=== PATIENT | male | born 2005 | race Caucasian/White ===

== ENCOUNTER 2025-06-23 12:44 | Emergency (ER) | payer BC, SELFPAY ==
--- NOTE | ~2025-06-23 | XR_ITS ---
EXAMINATION: XR ankle LT min 3V, 06/23/2025 13:52 CDT HISTORY: Left ankle pain COMPARISON: No comparisons available. Findings: No acute fracture or malalignment. No significant degenerative changes. Soft tissues unremarkable. Impression: No acute fracture or malalignment. Reviewed, dictated and finalized at location P. Impression: No acute fracture or malalignment.
--- NOTE | ~2025-06-23 | XR_ITS ---
EXAMINATION: XR foot LT min 3V, 06/23/2025 13:52 CDT HISTORY: Left foot pain COMPARISON: No comparisons available. Findings: No acute fracture or malalignment. No significant degenerative changes. Soft tissues unremarkable. Impression: No acute fracture or malalignment. Reviewed, dictated and finalized at location P. Impression: No acute fracture or malalignment.
[2025-06-23 12:57] VITALS: BP 106/73; PULSE 76; RESP 20; TEMP 36.7; O2SAT 98
--- OUTSIDE RECORDS SUMMARY | 2025-06-23 13:20 | XMS_ITS | Clinical Summary ---
Author Organization [address] Address [address] [place] [id number] Care Team Providers Care [employer] Name Role Phone Unknown, Notinfile Primary Care Provider Unavail able Allergies Active Allergy Reactions Criticality Noted Date Comments Amoxicillin Unknown 12/23/2022 Penicillins Unknown 12/23/2022 Medications No known medications Active Problems No known active problems Social History Tobacco Use Types Packs/Day Years Used Date Smoking Tobacco: Never Sex and Gender Information Value Date Recorded Sex Assigned at Not on file Legal Sex Male 10:41 AM CDT Gender Identity Not on file Sexual Orientation Not on file Obstetrics History Last Filed Vital Signs Vital Sign Reading Time Taken Comments Blood Pressure 121/80 12/13/2024 9:43 AM CDT Pulse 71 12/13/2024 9:43 AM CDT Temperature 36.4 C (97.5 F) 01/20/2023 3:13 PM CDT Respiratory Rate 16 01/20/2023 3:13 PM CDT Oxygen Saturation 97% 01/20/2023 3:13 PM CDT Inhaled Oxygen Concentration - - Weight 80.3 kg (177 lb) 12/13/2024 9:43 AM CDT Height 186.7 cm (6' 1.5) 12/13/2024 9:43 AM CDT Body Mass Index 23.04 12/13/2024 9:43 AM CDT Plan of Treatment Health Maintenance Due Date Last Done Comments Depression Screening 2003 Hepatitis C Screening 2003 DTaP/Tdap/Td Vaccine (1 - Tdap) 2014 Varicella Vaccines (1 of 2 - 13+ 2-dose series) 2016 HPV Vaccines (1 - Male 3-dos e series) 2018 Meningococcal B Vaccine (1 o f 2 - Standard) 2019 Hepatitis B Screening 2021 Regular Well Visit/Exam 18-64 2021 Influenza Vaccine (#1) 2025 Meningococcal Vaccine Aged Out No kathleen yrn eligible based on patient's age to complete this topic Pneumococcal vaccine <65 Aged Out No longer eligible based on patient's age to complete this topic Insurance [facility] [facility] [employer] Relationship Specialty Start Date End Date Unknown, Notinfile PCP - General 12/23/22
[2025-06-23] MEDS: KETOROLAC 30 MG/ML VIAL (*BKC) IM (13:44)
--- NOTE | 2025-06-23 13:59 | ED.LOWEXIN ---
HPI - Extremity Injury (Lower) General Chief Complaint: Extremity Injury, Lower Stated Complaint: left ankle injury Time Seen by Provider: 06/23/25 12:53 Source: patient Mode of arrival: ambulatory Limitations: no limitations History of Present Illness HPI Narrative: This is a 19-year-old male, with no significant past medical history presents to the emergency department complaining of left ankle pain. 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 He complains of moderate to severe dull pain. He denies any other injuries and has no other complaints at this time. Related Data Allergies Allergy/AdvReac Type Severity Reaction Status Date / Time amoxicillin Allergy Unknown Unknown Verified 06/23/25 13:02 Penicillins Allergy Unknown Hives Verified 06/23/25 13:02 Review of Systems Review of Systems: All systems reviewed & are unremarkable except as noted in HPI and below PMFSH Past Medical History Medical History No significant past medical history Surgical History Surgical History No significant past surgical history Social History Social History Smoking status: Never smoker Alcohol intake: current Substance use type: marijuana Exam Narrative: GENERAL: Well-developed, well-nourished, and in no acute distress. HEAD: Normocephalic, atraumatic. EYES: PERRLA and EOMI. CHEST: Clear to auscultation. No respiratory distress. No wheezes rales or rhonchi HEART: Regular rate and rhythm. No murmur heard. Normal peripheral pulses. EXTREMITIES: The lateral malleolus of the left ankle is swollen and tender to palpation. Range of motion of the left ankle somewhat diminished by pain though intact. Normal range of motion of all other extremities. No edema. SKIN: Warm, dry, no rash. NEURO: Alert and oriented x3. No focal deficit. Moving all 4 limbs spontaneously PSYCH: Normal mood and affect. Course Course Emergency Course: 14:34 - X-rays of the ankle and foot were negative for fracture or dislocation. I suspect ankle sprain. Place an Brda wrap and discharge with recommendation for RICE therapy, NSAIDs and primary care follow-up. I discussed the findings and recommendations with the patient. Discussed return and emergency precautions including signs/symptoms of septic arthritis and neurovascular compromise. The patient voiced understanding and agreement with the plan. All questions answered to his satisfaction. Vital Signs Vital signs: Vital Signs Temperature 98.0 F 06/23/25 12:57 Pulse Rate 76 06/23/25 12:57 Respiratory Rate 20 06/23/25 12:57 Blood Pressure 106/73 06/23/25 12:57 Pulse Oximetry 98 06/23/25 12:57 Oxygen Delivery Room Air 06/23/25 12:57 Temperature 98.0 F 06/23/25 12:57 Pulse Rate 76 06/23/25 12:57 Respiratory Rate 20 06/23/25 12:57 Blood Pressure 106/73 06/23/25 12:57 Pulse Oximetry 98 06/23/25 12:57 Oxygen Delivery Room Air 06/23/25 12:57 MDM - Extremity Injury (Lower) MDM Narrative Medical decision making narrative: Plan: Imaging, pain control, reassess Differential Diagnosis Differential diagnosis: Likely ankle sprain and strain, ankle fracture and other (Foot fracture, contusion, other) Discharge Plan Discharge Clinical Impression: Ankle sprain and strain, Acute left ankle pain Patient Disposition: Home Condition: Stable Instructions: Antibiotic Form, Ankle Sprain (ED) Additional Instructions: You were seen in the emergency department. X-rays of the ankle were not concerning for fracture dislocation. I recommend rest, icing, compression, elevation and management with Tylenol/ibuprofen. I recommend following up with a primary care doctor. He if the ankle is persistently painful in 7-10 days, you may need a repeat x-ray. Hairline fractures are sometimes missed initially. If you develop fevers with rapidly spreading redness, the ankle/foot appears blue/cold, or if you have other emergent concerns for life, limb, or eyesight, return to the emergency department. Patient Language: [place] Follow-up/Referrals: Chantal Goode DO [Physician, Family Practice] - 2 Weeks Time of Disposition: 14:34
== END 2025-06-23 14:55 | disposition home or self-care (01) ==
PROVIDERS: Emergency Provider Preventive Medicine Aerospace Medicine
DX: F12.90 Cannabis use, unspecified, uncomplicated (principal); S93.402A Sprain of unspecified ligament of left ankle, initial encounter; X50.0XXA Overexertion from strenuous movement or load, initial encounter
CPT/HCPCS: 73610; 73630; 96372; 99283; J1885